=== PATIENT | male | born 1995 | race Caucasian/White ===

== ENCOUNTER 2022-04-13 07:04 | Outpatient (CLI) | payer MEDICAID, SELFPAY ==
--- NOTE | 2022-04-13 07:15 | MR_ITS ---
WS: [id number] MRI BRAIN WITH AND WITHOUT CONTRAST HISTORY: G35 - Multiple sclerosis COMPARISON: None available. TECHNIQUE: Multiplanar imaging performed through the brain with MultiHance 20 ml's IV. No acute infarcts are seen. Borrero-white matter differentiation is well preserved. No identifiable kurt callosal, temporal lobe or brainstem lesions identified. Pericallosal soft tissues are normal. Visual ized upper cervical cord is normal. No susceptibility artifacts or prior lacunar infarcts. Ventricles and extra-axial spaces are normal. Clivus and pituitary gland are normal. Visualized posterior fossa and brainstem are also normal. Postcontrast images are negative for masses or vascular malformations. Dural venous sinuses are normal. Paranasal sinuses: Mild mucoperiosteal thickening in the LEFT maxillary sinus and the ethmoid air giorgi ls. No air-fluid levels. Mastoid air cells: Normal. Calvarium and scalp: Normal. MR/MR head wo/w con [id number] IMPRESSION: 1. Normal MRI brain with contrast. 2. No enhancing demyelinating lesions. No white matter lesions identified to suggest demyelinating disease.
[2022-04-13] MEDS: gadobenate dimeglumine 20 mL vial IV (08:04)
== END 2022-04-13 07:05 | disposition home or self-care (01) ==
PROVIDERS: Family Provider Family Medicine; Visit Provider Specialist
DX: G35 Multiple sclerosis (principal)
CPT/HCPCS: 70553; A9577